=== PATIENT | female | born 1980 | race Caucasian/White ===

== ENCOUNTER → 2018-04-03 | Outpatient (CLI) | payer BC ==
--- NOTE | 2018-04-03 15:55 | US ---
EXAMINATION TYPE: US kidneys/renal and bladder DATE OF EXAM: 04/03/2018 COMPARISON: NONE CLINICAL HISTORY: 37-year-old female R31.9 hematuria. TECHNIQUE: Multiple sonographic images of the kidneys and bladder are obtained. FINDINGS: EXAM MEASUREMENTS: Right Kidney: 9.0 x 4.6 x 4.6 cm Left Kidney: 10.8 x 4.7 x 5.1 cm Right Kidney: wnl Left Kidney: wnl Bladder: wnl Bilateral Jets seen: yes IMPRESSION: No hydronephrosis. No specific abnormality seen.
--- NOTE | 2018-04-03 15:56 | XR ---
EXAMINATION TYPE: XR lumbar spine 2 or 3V DATE OF EXAM: 04/03/2018 COMPARISON: NONE HISTORY: 37-year-old female intervertebral disc desiccation, chronic low back pain TECHNIQUE: 3 views FINDINGS: 5 lumbar type vertebral bodies. Mild facet arthropathy lower lumbar spine. Disc interspaces and verte bral body heights are maintained. Alignment is preserved. IMPRESSION: Mild facet arthropathy lower lumbar spine. No vertebral compression collapse or malalignment. Disc in terspaces are relatively maintained.
== END | disposition home or self-care (01) ==
LOC: RADUSWWP 12:51
PROVIDERS: ATTEND Family Medicine
DX: M51.36 Other intervertebral disc degeneration, lumbar region (principal); M46.96 Unspecified inflammatory spondylopathy, lumbar region; R31.9 Hematuria, unspecified
CPT/HCPCS: 72100; 76770

== ENCOUNTER 2020-03-16 17:31 | Emergency (ER) | payer BC ==
[2020-03-16 17:36] VITALS: TEMP 97.7
[2020-03-16] MEDS ORDERED: SODIUM CHLORIDE 0.9% 1,000 ML IV STA (17:59)
--- NOTE | 2020-03-16 18:59 | XR ---
EXAMINATION TYPE: XR KUB DATE OF EXAM: 03/16/2020 COMPARISON: 01/02/2011 HISTORY: Right upper quadrant pain TECHNIQUE: 2 views upright FINDINGS: There is no sign of intestinal obstruction or pneumoperitoneum. Fecal pattern is normal. Kristina ng bases are clear. There are no pathologic calcifications over the kidneys. There are small phleboli ths in the pelvis on the left side. IMPRESSION: Nonacute abdomen. No adverse change.
--- NOTE | 2020-03-16 19:06 | ED ---
General Adult HPI - General Chief complaint: Abdominal Pain Stated complaint: Abd pain Time Seen by Provider: 03/16/20 17:40 Source: patient, RN notes reviewed, old records reviewed Mode of arrival: ambulatory Limitations: no limitations - History of Present Illness Initial comments: 39-year-old female patient past history of reportedly 7 laparotomies secondary to endometriosis and hysterectomy presents to ED for evaluation of right upper quadrant abdominal pain, diarrhea, one episode of vomiting about 3 days ago. Patient reports that her stools have also been dark. She states that she was using Pepto-Bismol for a few days but has not used that she is still having dark stools. She denies any other acute complaints at this time. Systemic: Pt denies fatigue, fever/chills, rash. Pt denies weakness, night sweats, weight loss. Neuro: Pt denies headache, visual disturbances, syncope or pre-syncope. HEENT: Pt denies ocular discharge or irritation, otalgia, rhinorrhea, pharyngitis or notable lymphadenopathy. Cardiopulmonary: Pt denies chest pain, SOB, heart palpitations, dyspnea on exertion. : Pt denies dysuria, burning w/ urination, frequency/urgency. Denies new onset urinary or bowel incontinence. MSK: Pt denies myalgia, loss of strength or function in extremities. Neuro: Pt denies new onset weakness, paresthesias. - Related Data Home Medications Medication Instructions Recorded Confirmed Citalopram Hydrobromide [CeleXA] 40 mg PO HS 03/16/20 03/16/20 Cyclobenzaprine [Flexeril] 10 mg PO BID PRN 03/16/20 03/16/20 EPINEPHrine (Auto Inject) [Epipen] 0.3 mg PO DIRECTED PRN 03/16/20 03/16/20 Allergies Allergy/AdvReac Type Severity Reaction Status Date / Time iodine Allergy Anaphylaxis Verified 03/16/20 20:24 shellfish derived [Shellfish] Allergy Unknown Verified 03/16/20 20:24 cephalexin monohydrate AdvReac Unknown Verified 03/16/20 20:24 [From Keflex] nitrofurantoin AdvReac Unknown Verified 03/16/20 20:24 [From Macrobid] nitrofurantoin AdvReac Unknown Verified 03/16/20 20:24 macrocrystalline [From Macrobid] Sulfa (Sulfonamide AdvReac Unknown Verified 03/16/20 20:24 Antibiotics) davocet Allergy Unknown Uncoded 03/16/20 20:24 Review of Systems ROS Statement: Those systems with pertinent positive or pertinent negative responses have been documented in the HPI. ROS Other: All systems not noted in ROS Statement are negative. Past Medical History Past Medical History: No Reported History Additional Past Medical History / Comment(s): fibromyalgia History of Any Multi-Drug Resistant Organisms: None Reported Past Surgical History: Adenoidectomy, Appendectomy, Hysterectomy, Orthopedic Surgery, Tonsillectomy Additional Past Surgical History / Comment(s): laproscopies, eye Past Psychological History: No Psychological Hx Reported Smoking Status: Never smoker Past Alcohol Use History: None Reported Past Drug Use History: None Reported General Exam - General Exam Comments Initial Comments: Constitutional: NAD, AOX3, Pt has pleasant affect. HEENT: NC/AT, trachea midline, neck supple, no lymphadenopathy. External ears appear normal, without discharge. Mucous membranes moist. Eyes PERRLA, EOM intact. There is no scleral icterus. No pallor noted. Cardiopulmonary: RRR, no murmurs, rubs or gallops, no JVD noted. Lungs CTAB in anterior and posterior quintero. No peripheral edema. Abdominal exam: Abdomen soft and non-distended. Abdomen mildly tender to palpation right upper quadrant region. No other areas of tenderness.. Bowel sounds active in LLQ. No hepatosplenomegaly. No ecchymosis Neuro: CN II-XII grossly intact. No nuchal rigidity. No raccon eyes, no castellanos sign, no hemotympanum. No cervical spinal tenderness. MSK: Full active ROM in upper and lower extremities, 5/5 stregnth. Rectal: Occult blood negative for bright red blood or melanotic stool. No hemorrhoids. Chaperogned by Ashleigh MOE. Limitations: no limitations Course Vital Signs 03/16/20 03/16/20 17:32 20:25 Temperature 97.7 F Pulse Rate 83 76 Respiratory 18 19 Rate Blood Pressure 119/80 107/68 O2 Sat by Pulse 100 99 Oximetry Medical Decision Making - Medical Decision Making 39-year-old female patient presents ED chief complaint of right quadrant abdominal pain. Nausea vomiting diarrhea. Ongoing for the last 3 days. Denies any other acute complaints. Patient felt and are stable, afebrile. Physical exam. Her upper quadrant tenderness. Skinner sign negative. Investigations are unremarkable. Occult blood negative. Ultrasound negative of gallbladder. KUB did not display acute process. Patient will be discharged with nausea medication. Will follow up with primary care provider and GI consult if symptoms, will return to ER if condition worsens. Case discussed with Dr Manley. - Lab Data Result diagrams: 03/16/20 18:28 03/16/20 18:28 Lab Results 03/16/20 03/16/20 03/16/20 Range/Units 18:28 18:28 18:28 WBC 6.6 (3.8-10.6) k/uL RBC 4.91 (3.80-5.40) m/uL Hgb 13.8 (11.4-16.0) gm/dL Hct 42.5 (34.0-46.0) % MCV 86.5 (80.0-100.0) fL MCH 28.1 (25.0-35.0) pg MCHC 32.5 (31.0-37.0) g/dL RDW 12.4 (11.5-15.5) % Plt Count 265 (150-450) k/uL Neutrophils % 56 % Lymphocytes % 31 % Monocytes % 8 % Eosinophils % 2 % Basophils % 1 % Neutrophils # 3.7 (1.3-7.7) k/uL Lymphocytes # 2.1 (1.0-4.8) k/uL Monocytes # 0.5 (0-1.0) k/uL Eosinophils # 0.1 (0-0.7) k/uL Basophils # 0.0 (0-0.2) k/uL Sodium 138 (137-145) mmol/L Potassium 3.7 (3.5-5.1) mmol/L Chloride 105 (98-107) mmol/L Carbon Dioxide 25 (22-30) mmol/L Anion Gap 8 mmol/L BUN 16 (7-17) mg/dL Creatinine 0.69 (0.52-1.04) mg/dL Est GFR (CKD-EPI)AfAm >90 (>60 ml/min/1.73 sqM) Est GFR (CKD-EPI)NonAf >90 (>60 ml/min/1.73 sqM) Glucose 78 (74-99) mg/dL Plasma Lactic Acid Johny (0.7-2.0) mmol/L Calcium 9.9 (8.4-10.2) mg/dL Total Bilirubin 1.0 (0.2-1.3) mg/dL AST 27 (14-36) U/L ALT 26 (4-34) U/L Alkaline Phosphatase 73 (38-126) U/L Total Protein 7.2 (6.3-8.2) g/dL Albumin 4.7 (3.5-5.0) g/dL Lipase 56 (23-300) U/L Urine Color Light Yellow Urine Appearance Clear (Clear) Urine pH 5.5 (5.0-8.0) Ur Specific [place] 1.007 (1.001-1.035) Urine Protein Negative (Negative) Urine Glucose (UA) Negative (Negative) Urine Ketones Negative (Negative) Urine Blood Negative (Negative) Urine Nitrite Negative (Negative) Urine Bilirubin Negative (Negative) Urine Urobilinogen <2.0 (<2.0) mg/dL Ur Leukocyte Esterase Small H (Negative) Urine RBC <1 (0-5) /hpf Urine WBC 4 (0-5) /hpf Ur Squamous Epith Cells <1 (0-4) /hpf Stool Occult Blood (Negative) 03/16/20 03/16/20 Range/Units 18:28 19:57 WBC (3.8-10.6) k/uL RBC (3.80-5.40) m/uL Hgb (11.4-16.0) gm/dL Hct (34.0-46.0) % MCV (80.0-100.0) fL MCH (25.0-35.0) pg MCHC (31.0-37.0) g/dL RDW (11.5-15.5) % Plt Count (150-450) k/uL Neutrophils % % Lymphocytes % % Monocytes % % Eosinophils % % Basophils % % Neutrophils # (1.3-7.7) k/uL Lymphocytes # (1.0-4.8) k/uL Monocytes # (0-1.0) k/uL Eosinophils # (0-0.7) k/uL Basophils # (0-0.2) k/uL Sodium (137-145) mmol/L Potassium (3.5-5.1) mmol/L Chloride (98-107) mmol/L Carbon Dioxide (22-30) mmol/L Anion Gap mmol/L BUN (7-17) mg/dL Creatinine (0.52-1.04) mg/dL Est GFR (CKD-EPI)AfAm (>60 ml/min/1.73 sqM) Est GFR (CKD-EPI)NonAf (>60 ml/min/1.73 sqM) Glucose (74-99) mg/dL Plasma Lactic Acid Johny 0.6 L (0.7-2.0) mmol/L Calcium (8.4-10.2) mg/dL Total Bilirubin (0.2-1.3) mg/dL AST (14-36) U/L ALT (4-34) U/L Alkaline Phosphatase (38-126) U/L Total Protein (6.3-8.2) g/dL Albumin (3.5-5.0) g/dL Lipase (23-300) U/L Urine Color Urine Appearance (Clear) Urine pH (5.0-8.0) Ur Specific [place] (1.001-1.035) Urine Protein (Negative) Urine Glucose (UA) (Negative) Urine Ketones (Negative) Urine Blood (Negative) Urine Nitrite (Negative) Urine Bilirubin (Negative) Urine Urobilinogen (<2.0) mg/dL Ur Leukocyte Esterase (Negative) Urine RBC (0-5) /hpf Urine WBC (0-5) /hpf Ur Squamous Epith Cells (0-4) /hpf Stool Occult Blood Negative (Negative) Disposition Clinical Impression: Abdominal pain, Nausea vomiting and diarrhea Disposition: HOME SELF-CARE Condition: Stable Instructions (If sedation given, give patient instructions): Abdominal Pain (ED), Gastroenteritis (ED) Additional Instructions: Follow-up with primary care provider tomorrow. Follow-up GI consult tomorrow. Return to ER if any worsening symptoms. Is patient prescribed a controlled substance at d/c from ED?: No Referrals: Nawaf Colbert MD [Primary Care Provider] - 1-2 days Lv Kearney MD [STAFF PHYSICIAN] - 1-2 days
[2020-03-16 19:07] LABS: Basophils % (A) 1 %; Eosinophils # (A) 0.1 k/uL (0-0.7); Eosinophils % (A) 2 %; HCT 42.5 % (34.0-46.0); HGB 13.8 gm/dL (11.4-16.0); Lymphocytes # (A) 2.1 k/uL (1.0-4.8); Lymphocytes % (A) 31 %; MCH 28.1 pg (25.0-35.0); MCHC 32.5 g/dL (31.0-37.0); MCV 86.5 fL (80.0-100.0); Mean Platelet Volume 7.2; Monocytes # (A) 0.5 k/uL (0-1.0); Monocytes % (A) 8 %; Neutrophils # (A) 3.7 k/uL (1.3-7.7); Neutrophils % (A) 56 %; Platelet Count 265 k/uL (150-450); RBC 4.91 m/uL (3.80-5.40); RDW 12.4 % (11.5-15.5); WBC 6.6 k/uL (3.8-10.6)
[2020-03-16 19:08] LABS: Appearance,Urine Clear (Clear); Bilirubin,Urine Negative (Negative); Blood,Urine Negative (Negative); Color,Urine Light Yellow; Glucose,Urine (UA) Negative (Negative); Ketones,Urine Negative (Negative); Leukocyte Esterase,Urine Small (Negative); Nitrite,Urine Negative (Negative); PH, Urine 5.5 (5.0-8.0); Protein,Urine Negative (Negative); RBC,Urine <1 /hpf (0-5); Specific Gravity,Urine 1.007 (1.001-1.035); Squamous Epithelial Cell,Urine <1 /hpf (0-4); Urobilinogen,Urine <2.0 mg/dL (<2.0); WBC,Urine 4 /hpf (0-5)
[2020-03-16 19:29] LABS: ALT 26 U/L (4-34); AST 27 U/L (14-36); African American GFR (CKD) >90 (>60 ml/min/1.73 sqM); Albumin 4.7 g/dL (3.5-5.0); Alkaline Phosphatase 73 U/L (38-126); Anion Gap 8 mmol/L; Blood Urea Nitrogen 16 mg/dL (7-17); Calcium 9.9 mg/dL (8.4-10.2); Carbon Dioxide 25 mmol/L (22-30); Chloride 105 mmol/L (98-107); Glucose 78 mg/dL (74-99); Non-African American GFR(CKD) >90 (>60 ml/min/1.73 sqM); Potassium 3.7 mmol/L (3.5-5.1); Sodium 138 mmol/L (137-145); Total Protein 7.2 g/dL (6.3-8.2)
--- NOTE | 2020-03-16 19:50 | US ---
EXAMINATION TYPE: US gallbladder DATE OF EXAM: 03/16/2020 COMPARISON: NONE CLINICAL HISTORY: pain . Pain x 3 days. Hx appendectomy. EXAM MEASUREMENTS: Liver Length: 13.13 cm Gallbladder Wall: 0.27 cm CBD: 0.33 cm Right Kidney: 9.8 x 4.8 x 4.5 cm *Limited due to gas. Pancreas: Appears to be wnl. Liver: Measures 13.1 cm in length. Gallbladder: Folds are visualized. No stones seen at this time. Minimal internal echoes appear to be artifactual. Evidence for sonographic Skinner's sign: No CBD: Appears to be wnl. Right Kidney: No hydronephrosis or masses seen. There appears to be a probable column of Siva. Hyp erechoic area seen in sagittal but not well seen in transverse. IMPRESSION: Negative exam. No gallstones or dilated ducts.
[2020-03-16 20:25] VITALS: BP 107/68; PULSE 76; RESP 19
[2020-03-16] MEDS ORDERED: ONDANSETRON 4 MG ODT STARTER PACK 2 TAB BTL PO STA (20:55)
== END 2020-03-16 21:06 | disposition home or self-care (01) ==
LOC: EC 17:31
DX: R10.11 Right upper quadrant pain (principal); R19.7 Diarrhea, unspecified; R11.2 Nausea with vomiting, unspecified; Z88.2 Allergy status to sulfonamides; Z88.8 Allergy status to other drugs, medicaments and biological substances; Z91.013 Allergy to seafood; Z91.041 Radiographic dye allergy status; Z90.49 Acquired absence of other specified parts of digestive tract; Z90.710 Acquired absence of both cervix and uterus
CPT/HCPCS: 36415; 80053; 83605; 83690; 85025; 82272; 81001; 74018; 76705; 99285; 96360; 96361; S0119